=== PATIENT | female | born 1965 | race Caucasian/White ===

== ENCOUNTER 2016-05-30 13:05 | Emergency (ER) | payer OTHER ==
[2016-05-30] MEDS ORDERED: Acetaminophen/Codeine 30-300mg Tablet ONE (13:36)
[2016-05-30] MEDS ORDERED: Penicillin V Potassium 250 MG TAB ONE (13:36)
== END 2016-05-30 13:45 | disposition home or self-care (01) ==
LOC: MADERS 13:05
DX: G89.18 Other acute postprocedural pain (principal); K08.89 Other specified disorders of teeth and supporting structures; F31.9 Bipolar disorder, unspecified; F41.9 Anxiety disorder, unspecified; F20.9 Schizophrenia, unspecified; F17.210 Nicotine dependence, cigarettes, uncomplicated; Z79.899 Other long term (current) drug therapy
CPT/HCPCS: 99282

== ENCOUNTER 2016-07-02 17:27 | Emergency (ER) | payer OTHER ==
[2016-07-02] MEDS ORDERED: Ketorolac Tromethamine 30 MG/ML VIAL ONE (17:56)
== END 2016-07-02 18:15 | disposition home or self-care (01) ==
LOC: MADERS 17:27
DX: S76.911A Strain of unspecified muscles, fascia and tendons at thigh level, right thigh, initial encounter (principal); F41.9 Anxiety disorder, unspecified; F31.9 Bipolar disorder, unspecified; F20.9 Schizophrenia, unspecified; F41.0 Panic disorder [episodic paroxysmal anxiety]; Z79.899 Other long term (current) drug therapy; F17.210 Nicotine dependence, cigarettes, uncomplicated; X58.XXXA Exposure to other specified factors, initial encounter
CPT/HCPCS: 96372; J1885